=== PATIENT | male | born 1995 ===

== ENCOUNTER 2016-12-18 08:52 | Emergency (ER) | payer OTHER ==
--- NOTE | 2016-12-18 09:13 | UC ---
General HPI - HPI Summary HPI Summary: complaint of rash that sarted approx 2 weeks ago slept together in the same bed with friends and one of them had scabies rash is on lower abdomen and both underarms- worse at night last night noticed some dry skin on his hands yesterday denies fever ,chills, no new foods ,soaps,medications used A& D intment without relief - History of Current Complaint Hx Obtained From: Patient <Ngoc Fergusonny - Last Filed: 12/18/16 09:20> <Sunita Savage - Last Filed: 12/18/16 11:09> - History of Current Complaint Chief Complaint: UCSkin Stated Complaint: SKIN Time Seen by Provider: 12/18/16 09:06 - Allergy/Home Medications Allergies/Adverse Reactions: Allergies Allergy/AdvReac Type Severity Reaction Status Date / Time Azithromycin [From Zithromax] Allergy Rash Verified 12/18/16 09:05 Penicillins [PCN] Allergy Rash Verified 12/18/16 09:05 PMH/Surg Hx/FS Hx/Imm Hx Previously Healthy: Yes - Surgical History Surgical History: None - Family History Known Family History: Negative: Cardiac Disease, Hypertension, Diabetes - Social History Occupation: Employed Full-time Lives: With Family Alcohol Use: Occasionally Substance Use Type: Marijuana Substance Use Comment - Amount & Last Used: occasional Smoking Status (MU): Never Smoked Tobacco <Hannah Ferguson - Last Filed: 12/18/16 09:20> Review of Systems Constitutional: Negative Skin: Rash Eyes: Negative ENT: Negative Respiratory: Negative Cardiovascular: Negative Gastrointestinal: Negative Genitourinary: Negative Motor: Negative Neurovascular: Negative Musculoskeletal: Negative Neurological: Negative Psychological: Negative All Other Systems Reviewed And Are Negative: Yes <Hannah Ferguson - Last Filed: 12/18/16 09:20> Physical Exam Triage Information Reviewed: Yes Appearance: No Pain Distress, Well-Nourished Vital Signs: Initial Vital Signs Temp 98.1 F 12/18/16 08:56 Pulse 61 12/18/16 08:56 Resp 16 12/18/16 08:56 BP 120/58 12/18/16 08:56 Pulse Ox 99 12/18/16 08:56 Vital Signs Reviewed: Yes Eyes: Positive: Conjunctiva Clear ENT: Positive: Pharynx normal, TMs normal Neck: Positive: No Lymphadenopathy Respiratory: Positive: Lungs clear, Normal breath sounds, No respiratory distress, No accessory muscle use Cardiovascular: Positive: RRR, No Murmur, Pulses Normal, Brisk Capillary Refill Abdomen Description: Positive: Nontender, No Organomegaly, Soft Bowel Sounds: Positive: Present Musculoskeletal: Positive: No Edema Neurological Exam: Normal Psychological Exam: Normal Skin: Positive: rashes - lower abdomen and both axilla- erythematous linear areas of rash some tunneling noted <Hannah Ferguson - Last Filed: 12/18/16 09:20> Vital Signs: Initial Vital Signs Temp 98.1 F 12/18/16 08:56 Pulse 61 12/18/16 08:56 Resp 16 12/18/16 08:56 BP 120/58 12/18/16 08:56 Pulse Ox 99 12/18/16 08:56 <Sunita Savage - Last Filed: 12/18/16 11:09> Course/Dx - Course Course Of Treatment: exam completed. rash appears to be scabies- close contacts dx with scabies- will treat with permetherin - Differential Dx - Multi-Symptom Provider Diagnoses: scabies <Hannah Ferguson - Last Filed: 12/18/16 09:20> Discharge <Hannah Ferguson - Last Filed: 12/18/16 09:20> <Sunita Savage - Last Filed: 12/18/16 11:09> - Discharge Plan Condition: Stable Disposition: HOME Prescriptions: Permethrin 5% CREAM* 1 applic TOPICAL SEE INSTRUCTIONS #1 tube Patient Education Materials: Scabies (ED) Referrals: [facility] [place] [facility] [Outside] Additional Instructions: Please start permetherin as directed Increase fluids and rest Take benadryl 25 mg at bedtime to reduce itching Please review your discharge instructions. If your symptoms do not improve please call your primary care provider or return to urgent care. Attestation Statement User Type: Provider - I was available for consult. This patient was seen by the MARCUS. The patient was not presented to, seen by, or examined by me. -Joe <Sunita Savage - Last Filed: 12/18/16 11:09>
[2016-12-18 09:38] VITALS: BP 120/58
== END 2016-12-18 09:25 | disposition home or self-care (01) ==
LOC: UCEAST 08:52
DX: B86 Scabies (principal)
CPT/HCPCS: 99212; G0463

== ENCOUNTER 2016-12-24 21:18 | Emergency (ER) | payer OTHER ==
[2016-12-24 21:30] VITALS: BP 112/66
--- NOTE | 2016-12-24 22:24 | UC ---
Skin Complaint HPI - HPI Summary HPI Summary: DIAGNOSED WITH SCABIES ONE WEEK AGO NEEDS REPEAT TREATMENT FOR SCABIES. TOLERATED PREVIOUS TREATMENT WELL. - History of Current Complaint Chief Complaint: UCSkin Time Seen by Provider: 12/24/16 21:43 Stated Complaint: 2ND TREATMENT SCABIES Hx Obtained From: Patient Onset/Duration: Gradual Onset, Lasting Weeks, Still Present Skin Exposure Onset/Duration: Weeks Ago Onset Severity: Moderate Current Severity: None Location: Diffuse Character: Pruritus, Redness Aggravating: Touch Alleviating: Nothing Associated Signs & Symptoms: Positive: Rash Related History: Insect Bite/Sting, Possible Reaction to: Insect - Allergy/Home Medications Allergies/Adverse Reactions: Allergies Allergy/AdvReac Type Severity Reaction Status Date / Time Azithromycin [From Zithromax] Allergy Rash Verified 12/24/16 21:31 Penicillins [PCN] Allergy Rash Verified 12/24/16 21:31 Home Medications: Home Medications Multiple Vitamins W/ Minerals [Multivitamin Adults] 1 tab PO DAILY 12/24/16 [ History Confirmed 12/24/16] Review of Systems Constitutional: Negative Skin: Rash Eyes: Negative ENT: Negative Respiratory: Negative Cardiovascular: Negative Gastrointestinal: Negative Genitourinary: Negative Motor: Negative Neurovascular: Negative Musculoskeletal: Negative Neurological: Negative Psychological: Negative All Other Systems Reviewed And Are Negative: Yes PMH/Surg Hx/FS Hx/Imm Hx Previously Healthy: Yes - Surgical History Surgical History: None - Family History Known Family History: Negative: Cardiac Disease, Hypertension, Diabetes - Social History Occupation: Employed Full-time Lives: With Family Alcohol Use: Occasionally Substance Use Type: Marijuana Substance Use Comment - Amount & Last Used: occasional Smoking Status (MU): Never Smoked Tobacco Physical Exam Triage Information Reviewed: Yes Appearance: Well-Appearing, No Pain Distress, Well-Nourished Vital Signs: Initial Vital Signs Temp 98 F 12/24/16 21:26 Pulse 75 12/24/16 21:26 Resp 16 12/24/16 21:26 BP 112/66 12/24/16 21:26 Vital Signs Reviewed: Yes Eye Exam: Normal ENT Exam: Normal ENT: Positive: Normal ENT inspection, Hearing grossly normal, TMs normal Dental Exam: Normal Neck exam: Normal Respiratory Exam: Normal Respiratory: Positive: Chest non-tender, Lungs clear, Normal breath sounds Cardiovascular Exam: Normal Cardiovascular: Positive: RRR, No Murmur, Pulses Normal Abdominal Exam: Normal Musculoskeletal Exam: Normal Musculoskeletal: Positive: Strength Intact, ROM Intact Neurological Exam: Normal Psychological Exam: Normal Skin: Positive: rashes Course/Dx - Differential Diagnoses - Skin Complaint Differential Diagnoses: Cellulitis, Contact Dermatitis, Impetigo, Scabies, Systemic Illness, Tinea, Viral Exanthem - Diagnoses Provider Diagnoses: SCABIES, REPEAT TREATMENT Discharge - Discharge Plan Condition: Stable Disposition: HOME Prescriptions: Permethrin 5% CREAM* 1 applic TOPICAL SEE INSTRUCTIONS #1 tube Patient Education Materials: Scabies (ED) Referrals: [facility] [place] [facility] [Outside] Non Staff,Doctor [Primary Care Provider] -
== END 2016-12-24 22:24 | disposition home or self-care (01) ==
LOC: UCEAST 21:18
DX: B86 Scabies (principal)
CPT/HCPCS: 99212; G0463

== ENCOUNTER 2017-01-15 08:33 | Emergency (ER) | payer OTHER ==
[2017-01-15 08:48] VITALS: BP 111/61
--- NOTE | 2017-01-15 09:06 | UC ---
Skin Complaint HPI - HPI Summary HPI Summary: 21 Y/O male C/O itching that began approximately 4 weeks ago. Has been treated with permethrin cream with some relief. Presents today with very mild to no symptoms requesting refill of permethrin cream due to partner's continued uticaria and fear that mites have not been completely treated. Denies other complaint. Medications reviewed at this visit. - History of Current Complaint Chief Complaint: UCSkin Time Seen by Provider: 01/15/17 08:39 Stated Complaint: MED REFILL Hx Obtained From: Patient Onset/Duration: Lasting Weeks Skin Exposure Onset/Duration: Weeks Ago Onset Severity: Mild Current Severity: Mild - Allergy/Home Medications Allergies/Adverse Reactions: Allergies Allergy/AdvReac Type Severity Reaction Status Date / Time Azithromycin [From Zithromax] Allergy Rash Verified 01/15/17 08:44 Peanut-containing Drug Allergy Fever Verified 01/15/17 08:44 Products Penicillins [PCN] Allergy Rash Verified 01/15/17 08:44 Lobster Allergy Fever Uncoded 01/15/17 08:44 Home Medications: Home Medications Acetaminophen [Eq Acetaminophen] 1 tab PO Q6HR PRN 01/15/17 [History Confirmed 01/15/17] Loratadine [Claritin 10 MG CAP] 1 tab PO DAILY PRN 01/15/17 [History Confirmed 01/15/17] Review of Systems Constitutional: Negative Skin: Negative Eyes: Negative ENT: Negative Respiratory: Negative Cardiovascular: Negative Gastrointestinal: Negative Genitourinary: Negative Motor: Negative Neurovascular: Negative Musculoskeletal: Negative Neurological: Negative Psychological: Negative All Other Systems Reviewed And Are Negative: Yes PMH/Surg Hx/FS Hx/Imm Hx Previously Healthy: Yes - Surgical History Surgical History: None - Family History Known Family History: Negative: Cardiac Disease, Hypertension, Diabetes - Social History Alcohol Use: Rare Substance Use Type: None Substance Use Comment - Amount & Last Used: occasional Smoking Status (MU): Never Smoked Tobacco Physical Exam Triage Information Reviewed: Yes Appearance: Well-Appearing Vital Signs: Initial Vital Signs Temp 98.3 F 01/15/17 08:39 Pulse 72 01/15/17 08:39 Resp 14 01/15/17 08:39 BP 111/61 01/15/17 08:39 Pulse Ox 97 01/15/17 08:39 Vital Signs Reviewed: Yes Eye Exam: Normal Eyes: Positive: Conjunctiva Clear ENT Exam: Normal ENT: Positive: Normal ENT inspection Course/Dx - Differential Diagnoses - Skin Complaint Differential Diagnoses: Scabies - Previous treatment 12/2016 for scabies. - Diagnoses Provider Diagnoses: Scabies Discharge - Discharge Plan Condition: Stable Disposition: HOME Prescriptions: Permethrin 5% CREAM* 1 applic TOPICAL SEE INSTRUCTIONS #1 tube Patient Education Materials: Scabies (ED) Additional Instructions: For continued symptoms after treatment please return to urgent care or follow up with primary care physician. Take medication as prescribed.
== END 2017-01-15 09:23 | disposition home or self-care (01) ==
LOC: UCEAST 08:33
DX: B86 Scabies (principal); Z88.1 Allergy status to other antibiotic agents; Z91.010 Allergy to peanuts; Z88.0 Allergy status to penicillin; Z91.013 Allergy to seafood
CPT/HCPCS: 99212; G0463